=== PATIENT | female | born 1935 | race Caucasian/White ===

== ENCOUNTER 2016-10-14 05:44 | Inpatient (IN) | payer OTHER, BC ==
[~2016-10-14] VITALS: Ht 170.2 cm; Wt 90.4 kg
[~2016-10-14 05:44] MED LIST: CALAN120 MG PO; CALCIUM 600 +1 EAC1 PO; CLARITIN,ALAVAR10 MG PO; CYANOCOBALAM1000 MCG PO; DAILY VITE1 EAC1 PO; LOZOL2.5 MG PO; OMEGA-31000 M1 PO; VITAMIN B-6100 MG PO; XANAX0.25 MG PO; ZOLPIDEM TARTRAT5 MG PO; [UNRECOGNIZED DRUG - OTHER] PO
[2016-10-14 06:44] LABS: EOSINOPHIL (%) 0 % (0-5); HEMATOCRIT 34.7 % (36.0-46.0); IMMATURE GRANULOCYTE (%) 0.3 % (0.0-0.7); IMMATURE GRANULOCYTE COUNT 0.6 K/uL; LYMPHOCYTE COUNT 0.8 K/uL (1.0-2.8); MCH 31.3 PG (29.0-34.0); MCV 86.8 FL (83-99); MEAN PLAT.VOLUME 9.4 uM^3 (9.5-12.4); MONOCYTE (%) 3.7 % (3-12); MONOCYTE COUNT 0.8 K/uL (0-0.8); NEUTROPHIL (%) 91.8 % (45-76); NEUTROPHIL COUNT 18.6 K/uL (1.8-6.4); PLATELET COUNT 291 K/uL (156-360); RBC DIS.WIDTH-SD 43.3 % (39-53); WHITE BLOOD COUNT 20.3 K/uL (4.1-10.2)
[2016-10-14 06:53] LABS: INTER. NORMALIZED RATIO 1.4; PROTHROMBIN TIME 14.7 (9.2-11.2); PTT 32.9 (25-32)
[2016-10-14 07:20] LABS: ANION GAP 8 MEQ/L (2-14); CHLORIDE 90 MEQ/L (99-109); POTASSIUM 2.9 MEQ/L (3.7-5.4); SAMPLE HEMOLYSIS CHECK 0; SAMPLE ICTERIC CHECK 0; SAMPLE LIPEMIA CHECK 0; SODIUM 130 MEQ/L (136-147)
[2016-10-14 07:26] LABS: GFR ESTIMATE (CALCULATED) > 59 mL/min/; GLUCOSE 150 mg/dL (70-99); UREA NITROGEN (BUN) 9 mg/dL (9-23)
[2016-10-14 07:30] LABS: TROP-I INTERPRETATION NEGATIVE; TROPONIN-I 0.06 ng/mL (0.0-0.30)
[2016-10-14 07:54] LABS: CK-MB 4.9 ng/mL (0.0-4.9)
[2016-10-14 08:10] LABS: CREATINE KINASE 207 IU/L (1-294); TOTAL CK 207 IU/L (1-294)
[2016-10-14 08:15] LABS: ADD MIUA? YES; BILIRUBIN NEGATIVE; BLOOD MODERATE; COLOR YELLOW ((YELLOW)); GLUCOSE (STRIP) NEGATIVE; KETONES 5; LEUKOCYTES MODERATE; NITRITE POSITIVE; PROTEIN (STRIP) NEGATIVE; SPECIFIC GRAVITY 1.004 (1.000-1.030); UROBILINOGEN 0.2 MG/DL (0.2-1.0)
[2016-10-14 08:40] LABS: BACTERIA RARE /HPF; EPITHELIAL CELLS 3+ /HPF; MUCUS NONE SEEN /LPF; UCUL ADDED? NO; WHITE BLOOD CELLS NONE SEEN /HPF (0-5); WHITE BLOOD CELLS CLUMP MOD /HPF (0-5)
[2016-10-14] MEDS ORDERED: XARELTO15 MG PO (09:17)
[2016-10-15 05:35] VITALS: BP 131/58
[2016-10-15 08:10] LABS: ALKALINE PHOSPHATASE 49 IU/L (3-129); ANION GAP 6 MEQ/L (2-14); CHLORIDE 96 MEQ/L (99-109); GFR ESTIMATE (CALCULATED) > 59 mL/min/; GLUCOSE 96 mg/dL (70-99); POTASSIUM 4.1 MEQ/L (3.7-5.4); SAMPLE HEMOLYSIS CHECK 0; SAMPLE ICTERIC CHECK 0; SAMPLE LIPEMIA CHECK 0; SODIUM 135 MEQ/L (136-147); TOTAL BILIRUBIN 0.7 MG/DL (0.0-1.0); UREA NITROGEN (BUN) 10 mg/dL (9-23)
[2016-10-15 08:28] LABS: HEMATOCRIT 32.5 % (36.0-46.0); MCH 31.1 PG (29.0-34.0); MCHC 34.8 G/DL (30.0-36.0); MCV 89.5 FL (83-99); PLATELET COUNT 288 K/uL (156-360); RBC DIS.WIDTH-CV 14.2 % (11.8-14.6); RBC DIS.WIDTH-SD 45.1 % (39-53); RED BLOOD COUNT 3.63 M/uL (3.80-5.20); WHITE BLOOD COUNT 15.5 K/uL (4.1-10.2)
[2016-10-15 08:45] VITALS: BP 130/63
[2016-10-15 16:38] VITALS: BP 16/71
[2016-10-15 20:00] VITALS: BP 118/55
[2016-10-16 00:31] VITALS: BP 120/78
[2016-10-16 04:40] VITALS: BP 149/68
[2016-10-16 06:09] LABS: HEMATOCRIT 29.4 % (36.0-46.0); MCH 30.3 PG (29.0-34.0); MCHC 33.7 G/DL (30.0-36.0); MCV 89.9 FL (83-99); MEAN PLAT.VOLUME 9.9 uM^3 (9.5-12.4); PLATELET COUNT 247 K/uL (156-360); RBC DIS.WIDTH-CV 14.4 % (11.8-14.6); RBC DIS.WIDTH-SD 47.2 % (39-53); RED BLOOD COUNT 3.27 M/uL (3.80-5.20); WHITE BLOOD COUNT 12.6 K/uL (4.1-10.2)
[2016-10-16 06:34] LABS: ALKALINE PHOSPHATASE 39 IU/L (3-129); ANION GAP 4 MEQ/L (2-14); CHLORIDE 95 MEQ/L (99-109); GFR ESTIMATE (CALCULATED) > 59 mL/min/; GLUCOSE 91 mg/dL (70-99); POTASSIUM 3.9 MEQ/L (3.7-5.4); SAMPLE HEMOLYSIS CHECK 0; SAMPLE ICTERIC CHECK 0; SAMPLE LIPEMIA CHECK 0; SODIUM 132 MEQ/L (136-147); TOTAL BILIRUBIN 0.7 MG/DL (0.0-1.0); UREA NITROGEN (BUN) 11 mg/dL (9-23)
[2016-10-16 07:43] VITALS: BP 116/58
[2016-10-16 13:03] VITALS: BP 131/62
[2016-10-16 16:08] VITALS: BP 110/52
[2016-10-16 20:20] VITALS: BP 127/60
[2016-10-17] VITALS (7 sets, daily range): BP systolic 117–159; BP diastolic 50–74
[2016-10-17 06:23] LABS: EOSINOPHIL (%) 2.1 % (0-5); EOSINOPHIL COUNT 0.3 K/uL (0-0.3); HEMATOCRIT 30.6 % (36.0-46.0); IMMATURE GRANULOCYTE (%) 0.4 % (0.0-0.7); IMMATURE GRANULOCYTE COUNT 0.1 K/uL; LYMPHOCYTE COUNT 2.2 K/uL (1.0-2.8); MCH 30.2 PG (29.0-34.0); MCHC 33.7 G/DL (30.0-36.0); MCV 89.7 FL (83-99); MEAN PLAT.VOLUME 9.6 uM^3 (9.5-12.4); NEUTROPHIL (%) 71.3 % (45-76); NEUTROPHIL COUNT 8.7 K/uL (1.8-6.4); PLATELET COUNT 264 K/uL (156-360); RBC DIS.WIDTH-CV 14.3 % (11.8-14.6); RBC DIS.WIDTH-SD 46.9 % (39-53); RED BLOOD COUNT 3.41 M/uL (3.80-5.20); WHITE BLOOD COUNT 12.1 K/uL (4.1-10.2)
[2016-10-17 07:48] LABS: ALKALINE PHOSPHATASE 39 IU/L (3-129); ANION GAP 5 MEQ/L (2-14); CHLORIDE 92 MEQ/L (99-109); FERRITIN 220 NG/ML (10-291); GFR ESTIMATE (CALCULATED) > 59 mL/min/; GLUCOSE 84 mg/dL (70-99); IRON 36 MCG/DL (35-150); POTASSIUM 4.6 MEQ/L (3.7-5.4); SAMPLE HEMOLYSIS CHECK 0; SAMPLE ICTERIC CHECK 0; SAMPLE LIPEMIA CHECK 0; SODIUM 127 MEQ/L (136-147); TOTAL BILIRUBIN 0.7 MG/DL (0.0-1.0); UREA NITROGEN (BUN) 10 mg/dL (9-23)
[2016-10-18 04:03] VITALS: BP 156/67
[2016-10-18 08:04] VITALS: BP 120/65
[2016-10-18 11:32] VITALS: BP 128/58
[2016-10-18 15:38] VITALS: BP 139/84
[2016-10-18 20:32] VITALS: BP 135/59
[2016-10-19 00:39] VITALS: BP 145/63
[2016-10-19 03:37] VITALS: BP 143/91
[2016-10-19 07:53] VITALS: BP 147/67
[2016-10-19 11:49] VITALS: BP 143/66
[2016-10-19 17:26] VITALS: BP 136/70
[2016-10-19 20:13] VITALS: BP 125/61
[2016-10-20 00:44] VITALS: BP 159/67
[2016-10-20 07:58] VITALS: BP 140/68
[2016-10-20 11:30] VITALS: BP 147/74
[2016-10-20] MEDS ORDERED: POLYETHYLENE GL17 GM PO (14:19)
[2016-10-20] MEDS ORDERED: PANTOPRAZOLE SO40 MG PO (14:19)
[2016-10-20] MEDS ORDERED: NAMENDA5 MG PO (14:19)
[2016-10-20] MEDS ORDERED: SERTRALINE HCL25 MG PO (14:20)
[2016-10-20 16:15] VITALS: BP 113/92
[2016-10-20 20:38] VITALS: BP 120/58
[2016-10-21 00:02] VITALS: BP 148/72
[2016-10-21 04:04] VITALS: BP 136/70
[2016-10-21 05:55] LABS: HEMATOCRIT 32.5 % (36.0-46.0); MCH 30.1 PG (29.0-34.0); MCHC 33.8 G/DL (30.0-36.0); MCV 88.8 FL (83-99); MEAN PLAT.VOLUME 9.5 uM^3 (9.5-12.4); PLATELET COUNT 307 K/uL (156-360); RBC DIS.WIDTH-SD 45.2 % (39-53); RED BLOOD COUNT 3.66 M/uL (3.80-5.20); WHITE BLOOD COUNT 9.7 K/uL (4.1-10.2)
[2016-10-21 06:26] LABS: ANION GAP 6 MEQ/L (2-14); CHLORIDE 95 MEQ/L (99-109); GFR ESTIMATE (CALCULATED) > 59 mL/min/; GLUCOSE 87 mg/dL (70-99); POTASSIUM 4.6 MEQ/L (3.7-5.4); SAMPLE HEMOLYSIS CHECK 0; SAMPLE ICTERIC CHECK 0; SAMPLE LIPEMIA CHECK 0; SODIUM 128 MEQ/L (136-147); UREA NITROGEN (BUN) 9 mg/dL (9-23)
[2016-10-21 08:27] VITALS: BP 137/63
[2016-10-21 11:25] VITALS: BP 128/58
== END 2016-10-21 12:35 | DRG 690 ==
LOC: EME → EDBD 05:44 → EDOF 12:12 → 3EAST 12:12
PROVIDERS: Emergency Medicine; Family Medicine; Internal Medicine
DX: N39.0 Urinary tract infection, site not specified (principal); F03.90 Unspecified dementia, unspecified severity, without behavioral disturbance, psychotic disturbance, mood disturbance, and anxiety; E87.1 Hypo-osmolality and hyponatremia; I10 Essential (primary) hypertension; I48.2 Chronic atrial fibrillation; T14.8 Other injury of unspecified body region; W18.30XA Fall on same level, unspecified, initial encounter; E87.6 Hypokalemia; D72.829 Elevated white blood cell count, unspecified; M25.552 Pain in left hip; F41.9 Anxiety disorder, unspecified; M19.90 Unspecified osteoarthritis, unspecified site; I25.10 Atherosclerotic heart disease of native coronary artery without angina pectoris; E03.9 Hypothyroidism, unspecified; F32.9 Major depressive disorder, single episode, unspecified; E66.9 Obesity, unspecified; Y92.019 Unspecified place in single-family (private) house as the place of occurrence of the external cause; G47.00 Insomnia, unspecified
CPT/HCPCS: 70450; 71010; 71020; 72070; 72100; 72170; 72192; 73080; 73552; 80048; 80053; 81003; 82272; 82550; 82553; 82607; 82728; 82746; 83540; 84466; 84484; 85025; 85027; 85610; 85730; 93005; 94799; 97530 GO; 97530 GP; 99281; 99285; J0692; J0696; J1170; J1650; J3480; J7040; J7050